=== PATIENT | male | born 1980 ===

== ENCOUNTER 2017-12-11 14:29 | Emergency (ER) | payer MEDICAID ==
[~2017-12-11] VITALS: Ht 188 cm; Wt 92.1 kg
[~2017-12-11 14:29] MED LIST: [UNRECOGNIZED DRUG - CODE] PO
[2017-12-11 14:42] VITALS: BP 122/77
--- NOTE | 2017-12-11 14:45 | NUR ---
TONY LABOY TO CHAIR [place]
--- NOTE | 2017-12-11 14:48 | NUR ---
PATIENT PRESENTS TO ED WITH C/O BILAT FOOT PAIN . PT STATES FOOT FEELS SWEOLLEN;WHITE PATCHES NOTED ON LT FOOT SOLE . DENIES N/V/D; SKIN IS PINK/WARM/DRY; AAOX4 WITH EVEN AND STEADY GAIT; LUNGS CLEAR BL; HR EVEN AND REGULAR; PT DENIES ANY FEVER, CP, SOB, OR COUGH AT THIS TIME; PATIENT STATES PAIN OF 7/10 AT THIS TIME;PATIENT POSITIONED FOR COMFORT; ER MD MADE AWARE OF PT STATUS.
[2017-12-11] MEDS ORDERED: KETOROLAC 60 MG/2 ML VIAL IM ONE (15:20)
--- NOTE | 2017-12-11 15:59 | NUR ---
Patient discharged with v/s stable. Written and verbal after care instructions given and explained. Patient alert, oriented and verbalized understanding of instructions. Ambulatory with steady gait. All questions addressed prior to discharge. ID band removed. Patient advised to follow up with PMD. Rx of IBUPROFEN AND TRAMADOL given. Patient educated on indication of medication including possible reaction and side effects. Opportunity to ask questions provided and answered.
[2017-12-11 16:00] VITALS: BP 138/76
== END 2017-12-11 15:59 | disposition home or self-care (01) ==
LOC: MED 14:29
DX: S90.822A Blister (nonthermal), left foot, initial encounter (principal); S90.821A Blister (nonthermal), right foot, initial encounter; X58.XXXA Exposure to other specified factors, initial encounter; Y93.89 Activity, other specified; Y92.89 Other specified places as the place of occurrence of the external cause; Y99.8 Other external cause status
CPT/HCPCS: 96372; 99283; J1885